=== PATIENT | male | born 1945 | race African-American/Black ===

== ENCOUNTER 2016-07-29 22:14 | Emergency (ER) | payer OTHER ==
[~2016-07-29] VITALS: Ht 175.3 cm; Wt 91.0 kg
[~2016-07-29 22:14] MED LIST: CLON.1 PO; HYDR-2768 PO; IBUP400 PO; LISI2.5T55 PO; POLY119S PO
[2016-07-29 22:19] VITALS: BP 146/74; PULSE 99; RESP 20; O2SAT 96
--- NOTE | 2016-07-29 22:40 | PD ---
HPI Chief Complaint: Skin Problem Time Seen by Provider: 22:40 Travel History International Travel<30 days: No Contact w/Intl Traveler<30days: No Traveled to known affect area: No History of Present Illness HPI 70-year-old male presents to emergency depart for evaluation of a painful area and his mid back over his thoracic spine. Patient states he noticed earlier this week. He feels that has been a larger. Does not recall injury. States he has squeezed it with nothing coming out. Denies any fever or chills. No other symptoms to report. PFSH Past Medical History Arthritis: Yes Blood Disorders: No Cancer: No Diminished Hearing: No Endocrine: No Gastrointestinal Disorders: Yes (COLONOSCOPY 2000 & 2004) GERD: Yes Genitourinary: No Hypertension: Yes Immune Disorder: No Musculoskeletal: Yes Neurologic: No Psychiatric: No Reproductive: No Respiratory: No Ulcer: Yes Past Surgical History AICD: No Arteriovenous Shunt: No Insulin Pump: No Joint Replacement: No Pacemaker: No Social History Alcohol Use: Yes (occasional wine) Tobacco Use: No Substance Use: No Allergies-Medications (Allergen,Severity, Reaction): Coded Allergies: No Known Allergies (Verified , 07/29/16) Reported Meds & Prescriptions Reported Meds & Active Scripts Active Keflex (Cephalexin) 500 Mg Cap 500 Mg PO Q6H 5 Days Bactrim DS (Sulfamethoxazole-Trimethoprim) 800-160 Mg Tab 1 Tab PO BID Motrin 400 mg Tab (Ibuprofen) 400 Mg Tab 400 Mg PO Q6H PRN Catapres 0.1 mg (Clonidine HCl) 0.1 Mg Tab 1 Tab PO Q12 Lisinopril 2.5 mg (Lisinopril) 2.5 Mg Tab 2.5 Mg PO DAILY Reported Miralax 119 Gm Bottle (Polyethylene Glycol) 119 Gm Powd 17 Gm PO DAILY 17 GRAMS = 1 TABLESPOON DISSOLVED IN 4 TO 8 OUNCES OF BEVERAGE Hctz (Hydrochlorothiazide) 25 Mg Tab Unknown Dose PO BID Review of Systems Except as stated in HPI: all other systems reviewed are Neg Physical Exam Narrative GENERAL: Well-nourished, well-developed patient, ambulatory and in no acute distress SKIN: Warm and dry. 5 cm in diameter area of induration over the midthoracic spine. This appears to be subcutaneous. There is no fluctuance. It is mildly erythematous. HEAD: Normocephalic. EYES: No scleral icterus. No injection or drainage. NECK: Supple, trachea midline. No JVD or lymphadenopathy. CARDIOVASCULAR: Regular rate and rhythm without murmurs, gallops, or rubs. RESPIRATORY: Breath sounds equal bilaterally. No accessory muscle use. GASTROINTESTINAL: Abdomen soft, non-tender, nondistended. MUSCULOSKELETAL: No cyanosis, or edema. BACK: Nontender without obvious deformity. No CVA tenderness. Data Data Last Documented VS Vital Signs Date Time Temp Pulse Resp B/P Pulse Ox O2 Delivery O2 Flow Rate FiO2 07/29/16 22:19 99 20 146/74 96 Orders Spine, Thoracic-Ap/Lat/Sw(3vw) (07/29/16 ) Sulfamet-Trimeth Ds 800-160 Mg (Bactrim (07/29/16 23:45) MDM Medical Decision Making Medical Screen Exam Complete: Yes Emergency Medical Condition: Yes Medical Record Reviewed: Yes Differential Diagnosis Abscess versus cyst versus cellulitis neoplasm Narrative Course 70-year-old male presents to the emergency department for evaluation. Patient has a circular area of induration on the mid back over the midthoracic spine. There is no fluctuance. X-ray imaging is without acute bony abnormality. I have discussed with the patient ultrasound to further evaluate this. He wishes to do this outpatient or at a later time if it is not better. Patient will be started on oral antibiotics for a cellulitis and is encouraged to follow-up with primary care provider. He agrees to return immediately with any acute worsening of symptoms. Diagnosis Primary Impression: Cellulitis of trunk, unspecified Referrals: Primary Care Physician Patient Instructions: Cellulitis (ED), General Instructions Additional Instructions: Warm compresses to the area Tylenol or ibuprofen as directed on the package as needed for pain Follow-up with a primary care provider Do not squeeze the area Return immediately with any acute worsening of symptoms Please take an [id number] probiotic or yogurt with live cultures to reduce risk of GI upset Med/Other Pt SpecificInfo: Prescription(s) given Scripts Cephalexin (Keflex)500 Mg Hbs045 Mg PO Q6H 5 Days Ref 0 Prov:Sangita Sagastume 07/29/16 Sulfamethoxazole-Trimethoprim (Bactrim DS)800-160 Mg Tab1 Tab PO BID #14 TAB Ref 0 Prov:Sangita Sagastume 07/29/16 Disposition: 01 DISCHARGE HOME Condition: Stable Sangita Sagastume Jul 29, 2016 22:40
--- NOTE | 2016-07-29 23:21 | RADRPT ---
EXAM DATE/TIME: 07/29/2016 23:00 [facility] COMPARISON: No previous studies available for comparison. INDICATIONS : Abscess on upper back. Pain and swelling for the past four days. MEDICAL HISTORY : Back injections for pain management. SURGICAL HISTORY : None. ENCOUNTER: Initial ACUITY: 4 - 6 days PAIN SCORE: 5/10 LOCATION: Bilateral upper back. FINDINGS: Multilevel osteophyte formation, no compression deformity. Normal alignment. Normal bone density. CONCLUSION: Multilevel degenerative changes. Enrrique Balderas MD on July 29, 2016 at 23:19 Board Certified Radiologist. This report was verified electronically.
[2016-07-29] MEDS ORDERED: BACT800T5 PO (23:40)
[2016-07-29] MEDS ORDERED: CEPH-460 PO (23:40)
[2016-07-29] MEDS ORDERED: SULFAMETHOXAZOLE-TRIMETHOPRIM DS 800-160 MG TAB PO ONE (23:45)
== END 2016-07-29 23:54 | disposition home or self-care (01) ==
LOC: NEPB 22:14
DX: L85.8 Other specified epidermal thickening (principal); L03.319 Cellulitis of trunk, unspecified; I10 Essential (primary) hypertension; M19.90 Unspecified osteoarthritis, unspecified site
CPT/HCPCS: 72072; 99283

== ENCOUNTER 2016-08-03 23:42 | Emergency (ER) | payer OTHER ==
[~2016-08-03] VITALS: Ht 175.3 cm; Wt 90.0 kg
[~2016-08-03 23:42] MED LIST changes: +BACT800T5 PO; +CEPH-460 PO
[2016-08-03 23:45] VITALS: BP 161/74; PULSE 85; RESP 18; TEMP 97.8; O2SAT 98
[2016-08-04] MEDS ORDERED: HYDR-3533 PO (01:48)
--- NOTE | 2016-08-04 01:48 | PD ---
HPI Chief Complaint: Skin Problem Time Seen by Provider: 01:44 Travel History International Travel<30 days: No Contact w/Intl Traveler<30days: No Traveled to known affect area: No History of Present Illness HPI 70-year-old black male returns to emergency department after being on antibiotics for 2 days for a infected sebaceous cyst on his back. He states that the cyst is been present now as far she knows for approximately 1 week. It has become increasingly painful, red and swollen. Pain is mild. No drainage. PFSH Past Medical History Arthritis: Yes Blood Disorders: No Cancer: No Cardiovascular Problems: Yes (HTN) Diminished Hearing: No Endocrine: No Gastrointestinal Disorders: Yes (COLONOSCOPY 2000 & 2004) GERD: Yes Genitourinary: No Hypertension: Yes Immune Disorder: No Musculoskeletal: Yes Neurologic: No Psychiatric: No Reproductive: No Respiratory: No Ulcer: Yes Past Surgical History AICD: No Arteriovenous Shunt: No Insulin Pump: No Joint Replacement: No Pacemaker: No Social History Alcohol Use: Yes (occasional wine) Tobacco Use: No Substance Use: No Allergies-Medications (Allergen,Severity, Reaction): Coded Allergies: No Known Allergies (Verified , 08/03/16) Reported Meds & Prescriptions Reported Meds & Active Scripts Active Keflex (Cephalexin) 500 Mg Cap 500 Mg PO Q6H 5 Days Bactrim DS (Sulfamethoxazole-Trimethoprim) 800-160 Mg Tab 1 Tab PO BID Motrin 400 mg Tab (Ibuprofen) 400 Mg Tab 400 Mg PO Q6H PRN Catapres 0.1 mg (Clonidine HCl) 0.1 Mg Tab 1 Tab PO Q12 Lisinopril 2.5 mg (Lisinopril) 2.5 Mg Tab 2.5 Mg PO DAILY Reported Miralax 119 Gm Bottle (Polyethylene Glycol) 119 Gm Powd 17 Gm PO DAILY 17 GRAMS = 1 TABLESPOON DISSOLVED IN 4 TO 8 OUNCES OF BEVERAGE Hctz (Hydrochlorothiazide) 25 Mg Tab Unknown Dose PO BID Review of Systems Except as stated in HPI: all other systems reviewed are Neg Physical Exam Narrative GENERAL: This is a well-nourished, well-developed patient, in no apparent distress. SKIN: Patient has an area of erythema, warmth and tenderness to the mid posterior back. There is a small nidus consistent with a infected sebaceous cyst. The area measures approximately 4 x 4 centimeters., ecchymoses or lesions. Warm and dry. HEAD: Atraumatic. Normocephalic. EYES: PERRL, EOMI, no discharge or injection. No scleral icterus. EARS: Clear NOSE: Nasal turbinates appear normal. THROAT: Mucosa pink and moist. Airway patent. NECK: Trachea midline. supple, moves head freely. LUNGS: Clear to auscultation. CV: Regular in rhythm. ABDOMEN: Soft nontender. EXT: No clubbing cyanosis or edema. Data Data Last Documented VS Vital Signs Date Time Temp Pulse Resp B/P Pulse Ox O2 Delivery O2 Flow Rate FiO2 08/04/16 01:41 16 08/03/16 23:45 97.8 85 161/74 98 Room Air MDM Medical Decision Making Medical Screen Exam Complete: Yes Emergency Medical Condition: Yes Medical Record Reviewed: Yes Differential Diagnosis MDM: High Differential diagnoses: Abscess, folliculitis, cellulitis, lymphangitis, abrasion, contact dermatitis, sebaceous cyst, infected sebaceous cyst Narrative Course This is an infected sebaceous cyst. An incision and drainage has been performed. Procedures Procedure Narrative I&D abscess: After the risks and benefits were discussed the following procedure was performed. The skin is prepped and draped in the usual sterile fashion using Betadine. The abscess is anesthetized with 1% lidocaine with epinephrine and 0.5% Marcaine. After adequate anesthesia, an 10 blade scalpel is used to make a 2 cm central incision. Perulant material is expressed. Loculations are broken up using curved Bella forceps. The wound is cleansed deeply using dilute Betadine and peroxide on Q-tips. The wound is packed open using iodoform gauze. A clean dressing is applied. The patient tolerated the procedure well. There was no complications. Follow-up instructions were given to the patient. Diagnosis Primary Impression: Infected sebaceous cyst Patient Instructions: General Instructions Additional Instructions: Rest. Elevation. keep clean and dry. remove the packing in 2-3 days. Daily wound care with soap, water and Neosporin. Continue your medications. Lortab for moderate to severe pain. Follow-up with a primary care doctor 3-5 days. He will need to have this area revised surgically by your doctor or a scuba diving teacher. Return to the ER for any problems. Med/Other Pt SpecificInfo: Prescription(s) given, Wound Care Disposition: 01 DISCHARGE HOME Condition: Stable Aristides Fernandez Aug 04, 2016 01:48
== END 2016-08-04 02:15 | disposition home or self-care (01) ==
LOC: NEPB 23:42
DX: L72.3 Sebaceous cyst (principal); B99.9 Unspecified infectious disease; I10 Essential (primary) hypertension; K21.9 Gastro-esophageal reflux disease without esophagitis
CPT/HCPCS: 10061